=== PATIENT | male | born 2000 | race Caucasian/White ===

== ENCOUNTER 2021-07-27 01:01 | Emergency (ER) | payer OTHER ==
[~2021-07-27] VITALS: Ht 182.9 cm; Wt 72.7 kg
[2021-07-27 02:15] LABS: MEAN CELL VOLUME 91 fl (80.0-100.0); MEAN CORPUSCULAR HGB CONC 36 g/dl (33.0-37.0); MEAN PLATELET VOLUME 10.8 fl (7.4-10.4); PLATELET COUNT 167 K/mm3 (130-400); RED BLOOD COUNT 5.82 M/mm3 (4.20-5.60); REDCELL DISTRIBUTION WIDTH-CV 13.1 % (11.5-14.5)
[2021-07-27 02:31] LABS: HEMATOCRIT 52.8 % (42.0-52.0); MEAN CORPUSCULAR HEMOGLOBIN 33 pg (27-31)
[2021-07-27 02:42] LABS: ALBUMIN 4.9 gm/dL (3.5-5.0); BILIRUBIN,TOTAL 0.8 mg/dL (0.2-1.2); C-REACTIVE PROTEIN 0.06 mg/dL (0.00-0.50); CALCIUM 9.6 mg/dL (8.4-10.2); CREATININE, serum 1.27 mg/dL (0.72-1.25); POTASSIUM 4.1 mmol/L (3.5-4.5); TOTAL PROTEIN 7.9 gm/dL (6.2-8.1)
[2021-07-27] MEDS ORDERED: ZOFRAN ODT4 MG PO (02:51)
[2021-07-27 03:03] LABS: BAND 12 % (0-10); BASOPHIL 1 % (0-2); EOSINOPHIL 1 % (0-4); LYMPHOCYTE 11 % (20.0-51.0); METAMYELOCYTE 1 % (0-0); NEUTROPHILS 68 % (42.0-75.2)
[2021-07-27 03:06] LABS: PLATELET ESTIMATE NORMAL (NORMAL)
[2021-07-27 03:15] VITALS: BP 120/65; PULSE 88; TEMP 98.8
== END 2021-07-27 03:20 | disposition home or self-care (01) ==
LOC: COL.ER 01:01
PROVIDERS: Nurse Practitioner
DX: R10.84 Generalized abdominal pain (principal); R11.2 Nausea with vomiting, unspecified; R19.7 Diarrhea, unspecified; D72.829 Elevated white blood cell count, unspecified
CPT/HCPCS: J2405; J7030